=== PATIENT | female | born 1950 | race Caucasian/White ===

== ENCOUNTER → 2016-04-22 | Outpatient (CLI) | payer OTHER ==
[~2016-04-22] MED LIST: ALBU0.086 INH; TEMA15
== END ==
LOC: CLAB 07:26
PROVIDERS: ATTEND Specialist
DX: B18.2 Chronic viral hepatitis C (principal)
CPT/HCPCS: 36415; 82140

== ENCOUNTER → 2016-09-29 | Outpatient (CLI) | payer MEDICARE | LOC: CLAB 13:50 | PROVIDERS: ATTEND Specialist | DX: B18.2 Chronic viral hepatitis C (principal); A60.09 Herpesviral infection of other urogenital tract | CPT/HCPCS: 36415; 82140 ==

== ENCOUNTER → 2017-06-29 | Outpatient (CLI) | payer MEDICARE | LOC: CLAB 08:03 | PROVIDERS: ATTEND Specialist | DX: B18.2 Chronic viral hepatitis C (principal); F43.25 Adjustment disorder with mixed disturbance of emotions and conduct; B00.9 Herpesviral infection, unspecified; J06.9 Acute upper respiratory infection, unspecified; R07.9 Chest pain, unspecified | CPT/HCPCS: 36415; 82140 ==

== ENCOUNTER → 2017-07-11 | Outpatient (CLI) | payer MEDICARE | LOC: CLAB 09:35 | PROVIDERS: ATTEND Specialist | DX: B18.2 Chronic viral hepatitis C (principal); A60.09 Herpesviral infection of other urogenital tract; J30.2 Other seasonal allergic rhinitis; F43.25 Adjustment disorder with mixed disturbance of emotions and conduct; R79.9 Abnormal finding of blood chemistry, unspecified | CPT/HCPCS: 36415; 82140 ==